=== PATIENT | female | born 1990 | race Hispanic/Latino ===

== ENCOUNTER 2019-01-10 21:28 | Emergency (ER) | payer OTHER ==
[~2019-01-10] VITALS: Ht 162.6 cm; Wt 101.2 kg
[2019-01-10] MEDS ORDERED: LEXAPRO10 MG PO (21:49)
[2019-01-10] MEDS ORDERED: DIVA500T2 PO (21:49)
[2019-01-10 22:46] LABS: POTASSIUM 3.7 mmol/L (3.6-5.2)
[2019-01-10 22:57] LABS: PLATELET COUNT 304 K/uL (152-353)
[2019-01-11 01:19] VITALS: BP 130/61; TEMP 98.5
== END 2019-01-11 01:20 | disposition home or self-care (01) ==
LOC: ED 21:28
PROVIDERS: Internal Medicine
DX: R10.11 Right upper quadrant pain (principal); R11.2 Nausea with vomiting, unspecified
CPT/HCPCS: 36415; 80053; 82150; 83690; 85027; 96374; 96375; 99284; J1885; J2405; Q9963

== ENCOUNTER 2019-02-12 09:45 | Emergency (ER) | payer OTHER ==
[~2019-02-12] VITALS: Ht 162.6 cm; Wt 103.0 kg
[~2019-02-12 09:45] MED LIST: DIVA500T2 PO; LEXAPRO10 MG PO
[2019-02-12] MEDS ORDERED: LEXAPRO10 MG PO (10:02)
[2019-02-12] MEDS ORDERED: TRILEPTAL150 MG PO (10:02)
[2019-02-12] MEDS ORDERED: LORA1TAB17 PO (10:02)
[2019-02-12 12:17] VITALS: BP 114/69; TEMP 97.7
== END 2019-02-12 12:17 | disposition home or self-care (01) ==
LOC: ED 09:45
DX: S70.01XA Contusion of right hip, initial encounter (principal); S80.01XA Contusion of right knee, initial encounter; S39.012A Strain of muscle, fascia and tendon of lower back, initial encounter
CPT/HCPCS: 96372; 99283; J1885

== ENCOUNTER 2019-03-27 11:37 | Emergency (ER) | payer OTHER ==
[~2019-03-27] VITALS: Ht 162.6 cm; Wt 103.0 kg
[~2019-03-27 11:37] MED LIST changes: +LORA1TAB17 PO; +TRILEPTAL150 MG PO
[2019-03-27 11:41] VITALS: BP 109/74; TEMP 98.5
[2019-03-27 12:33] LABS: PLATELET COUNT 265 K/uL (152-353)
[2019-03-27 12:41] LABS: POTASSIUM 3.8 mmol/L (3.6-5.2); SODIUM 137 mmol/L (136-145)
== END 2019-03-27 14:04 | disposition home or self-care (01) ==
LOC: ED 11:37
PROVIDERS: Emergency Medicine
DX: A59.9 Trichomoniasis, unspecified (principal); T42.1X5A Adverse effect of iminostilbenes, initial encounter; T43.225A Adverse effect of selective serotonin reuptake inhibitors, initial encounter
CPT/HCPCS: 36415; 80053; 80307; 81000; 81025; 82550; 83735; 84484; 85027; 93005; 96360; 96372; 96375; 99284; J1885; J3475

== ENCOUNTER 2020-01-16 09:42 | Emergency (ER) | payer OTHER ==
[~2020-01-16] VITALS: Ht 162.6 cm; Wt 106.1 kg
[2020-01-16 09:56] VITALS: TEMP 98.14
[2020-01-16 10:39] LABS: PLATELET COUNT 280 K/uL (152-353)
[2020-01-16 10:48] LABS: POTASSIUM 3.4 mmol/L (3.6-5.2); SODIUM 138 mmol/L (136-145)
[2020-01-16 14:23] VITALS: BP 135/70
== END 2020-01-16 14:23 | disposition home or self-care (01) ==
LOC: ED 09:42
PROVIDERS: Family Medicine
DX: K29.70 Gastritis, unspecified, without bleeding (principal); K80.20 Calculus of gallbladder without cholecystitis without obstruction; R11.0 Nausea
CPT/HCPCS: 80053; 81000; 84484; 85027; 85379; 93005; 99284; Q9963